=== PATIENT | male | born 1985 | race Caucasian/White ===

== ENCOUNTER 2023-10-14 13:30 | Emergency (ER) | payer BC, SELFPAY ==
[2023-10-14] VITALS (11 sets, daily range): BP systolic 136; BP diastolic 90; PULSE 63–96; RESP 20; O2SAT 92–100; BMI 19.7
--- NOTE | 2023-10-14 13:58 | ED.GENADULT ---
HPI - General Adult General Date Seen: 10/14/23 Chief complaint: Arrhythmia/Palpitations Stated complaint: Heart palp etc Time Seen by Provider: 10/14/23 13:32 Source: patient, RN notes reviewed and old records reviewed Mode of arrival: ambulatory Limitations: no limitations History of Present Illness HPI narrative: Patient is a 38-year-old who presents for evaluation of palpitations associated with some shortness of breath. He has a longstanding history of PVCs, in fact seen multiple cardiologists, with recommendation for ablation. He has to this point been hesitant to proceed with a procedure, he has been on propanolol for at least a couple of years. Most recently he has had some bradycardia and so the propanolol was switched 4 days ago to diltiazem. He has been waiting for the diltiazem to kick in but says he has been having more PVCs and today had what he identified as bigeminy which felt somewhat fast and scared him. He does not get lightheaded or pass out, did have some mild shortness of breath associated with feeling anxious today. Did not have chest pain. He does not smoke, denies other substances. No other medical history aside from PFO. Related Data Home Medications Medication Instructions Recorded Confirmed aspirin 325 mg tablet 325 mg PO Q4H 04/26/23 10/02/23 diltiazem HCl 120 mg 120 mg PO DAILY 10/14/23 10/14/23 capsule,extended release 24 hr Previous Rx's Medication Instructions Recorded propranolol 20 mg tablet 20 mg PO BID #60 tabs 10/14/23 Allergies Allergy/AdvReac Type Severity Reaction Status Date / Time No Known Allergies Allergy Unknown Unknown Verified 10/02/23 14:26 Review of Systems Status of ROS: Reports: 6 or more systems reviewed and unremarkable except as noted in History and below [facility] Medical History PVCs (premature ventricular contractions) ?I49.3 - Ventricular premature depolarization (ICD-10) History of cerebrovascular accident (02/21/17) ?Z86.73 - Personal history of transient ischemic attack (TIA), and cerebral infarction without residual deficits (ICD-10) Sinus infection ?J32.9 - Chronic sinusitis, unspecified (ICD-10) Surgical History History of loop recorder (02/26/18) ?Z98.890 - Other specified postprocedural states (ICD-10) Social History Smoking Status: Never smoker How often do you have a drink containing alcohol: never AUDIT-C Alcohol total score: 0 Non-prescribed substance use: denies use Little interest or pleasure in doing things: not at all Feeling down, depressed, or hopeless: not at all service: No Exam Narrative: Exam Narrative: Vital signs as noted above. In general, an alert, well-appearing patient. Head: Normocephalic, atraumatic. Eyes: Pupils are equal reactive. Extraocular movements are full. Conjunctivae are normal. ENT: Mucous membranes are moist. Throat is normal. Neck: Supple without lymphadenopathy. Heart: Regular rate and rhythm. No murmur or rub. Occasional ectopy. Lungs: Clear bilaterally. No increased work of breathing, crackles or wheezes. Abdomen: Soft and nontender. No organomegaly. Extremities: Well perfused. No edema. No calf tenderness. Pulses intact. Neurologic: Patient is alert and oriented to person and place. Speech is fluent. Face is symmetric. Moves all extremities equally. Affect: Normal. Skin: Warm and dry. Well perfused. Const: Vital Signs, click to edit/add: Vital Signs - 24 hr 10/14/23 13:37 10/14/23 13:41 10/14/23 13:44 Pulse Rate 90 82 Pulse Rate [Pulse Oximeter] 96 Respiratory Rate 20 Blood Pressure 136/90 H Blood Pressure [Ri ght Upper Arm] 136/90 H Pulse Oximetry 96 98 100 Oxygen Delivery Me thod Room Air 10/14/23 13:45 10/14/23 13:58 10/14/23 14:00 Pulse Rate 87 78 Pulse Rate [Pulse Oximeter] Respiratory Rate Blood Pressure Blood Pressure [Ri ght Upper Arm] Pulse Oximetry 92 95 98 Oxygen Delivery Me thod 10/14/23 14:15 10/14/23 14:30 10/14/23 14:45 Pulse Rate 71 72 63 Pulse Rate [Pulse Oximeter] Respiratory Rate Blood Pressure Blood Pressure [Ri ght Upper Arm] Pulse Oximetry 98 96 99 Oxygen Delivery Me thod 10/14/23 15:00 Pulse Rate 76 Pulse Rate [Pulse Oximeter] Respiratory Rate Blood Pressure Blood Pressure [Ri ght Upper Arm] Pulse Oximetry 100 Oxygen Delivery Ar yuanbrandon Documenting provider has reviewed patient's vital signs: yes Course Course ED Course: EKG here shows a single PVC, he has scattered PVCs on the monitor. No acute ST segment changes. A lot of artifact in the baseline. Had a long conversation with him. It sounds as if he is now thinking maybe he will go forward with an ablation after all. His heart rate is relatively high here in the 90s, his blood pressure is 136/90. I am going to try giving him a small dose of propanolol in addition to the diltiazem, I suspect that the propanolol has also been helping him manage a little bit of anxiety symptoms around all of this. Will check some basic lab work, CBC, metabolic panel, troponin, but I suspect patient's symptoms are baseline PVCs with somewhat worsening symptoms related to medication change. Rule out metabolic abnormality, ischemia, anemia etc.. Labs are unremarkable. After 40 mg of propanolol heart rate is in the 70s. Continued occasional PVCs. Had a lengthy conversation with him, would strongly encourage him to follow through with ablation. Overall think it is reasonable for him to go home. I am prescribing propanolol 20 mg tablets 1-2 daily depending on heart rate. Primary care follow-up if needed. Return for syncope, sustained regular tachycardia or other acute worsening. Vital Signs Vital signs: Initial Vital Signs Pulse Rate 96 10/14/23 13:37 Pulse Rhythm Regular 10/14/23 13:37 Respiratory Rate 20 10/14/23 13:37 Blood Pressure 136/90 H 10/14/23 13:37 Blood Pressure Mean 105 10/14/23 13:37 Blood Pressure Position Sitting 10/14/23 13:37 Pulse Oximetry 96 10/14/23 13:37 Oxygen Delivery Method Room Air 10/14/23 13:37 Vital Signs Pulse Rate 96 10/14/23 13:37 Respiratory Rate 20 10/14/23 13:37 Blood Pressure 136/90 H 10/14/23 13:37 Pulse Oximetry 96 10/14/23 13:37 Oxygen Delivery Method Room Air 10/14/23 13:37 Pulse Rate 76 10/14/23 15:00 Respiratory Rate 20 10/14/23 13:37 Blood Pressure 136/90 H 10/14/23 13:41 Pulse Oximetry 100 10/14/23 15:00 Oxygen Delivery Method Room Air 10/14/23 13:37 Medications Administered Medications: Discontinued Medications Generic Name Dose Route Start Last Admin Trade Name Woody PRN Reason Stop Dose Admin Propranolol HCl 40 mg 10/14/23 13:53 10/14/23 14:02 Propranolol 20 Mg Tablet PO 10/14/23 13:54 40 mg ONCE ONE Administration Medical Decision Making Lab Data Labs: Lab Results 10/14/23 10/14/23 Range/Units 13:52 14:08 WBC 7.20 (4.50-11.00) K/uL RBC 4.78 (4.30-5.90) m/uL Hgb 15.1 (13.5-17.5) gm/dL Hct 43.5 (37.0-53.0) % MCV 91 (80-100) fL MCH 32 (26-34) pg MCHC 35 (32-36) gm/dL RDW Coeff of Rika 12.6 (11.5-15.5) % Plt Count 176 (140-440) K/uL Neut % (Auto) 62.0 (42.0-72.0) % Lymph % (Auto) 25.6 (20-44) % [place] % (Auto) 6.8 (0.0-11.0) % Eos % (Auto) 4.9 (0.0-7.0) % Baso % (Auto) 0.4 (0.0-3.0) % Neut # (Auto) 4.47 (1.7-7.0) K/uL Lymph # (Auto) 1.84 (0.90-2.90) K/uL [place] # (Auto) 0.50 (0.00-0.90) K/UL Eos # (Auto) 0.35 (0.00-0.50) K/uL Baso # (Auto) 0.03 (0.00-0.30) K/uL Abs Immat Gran (auto) 0.02 (0.00-0.30) K/uL Imm/Tot Granulo (auto) 0.3 % Sodium 139 (135-149) mmol/L Potassium 3.8 (3.6-5.1) mmol/L Chloride 104 (96-114) mmol/L Carbon Dioxide 24 (20-32) mmol/L Anion Gap 11 (7-15) mEq/L BUN 10 (5-24) mg/dL Creatinine 0.7 (0.5-1.5) mg/dL Estimated Creat Clear 130.50 Estimated GFR 119 ml/min Glucose 109 (60-115) mg/dL Calcium 9.4 (8.4-10.6) mg/dL POC Troponin I 0.00 L (0.01-0.04) ng/ml Discharge Plan Discharge Clinical Impression: PVCs (premature ventricular contractions) Patient Disposition: Home, Self-Care Condition: Stable Instructions: Premature Ventricular Contractions (ED) Additional Instructions: Continue the diltiazem. I am prescribing propanolol 20 mg tablets, you can take 1-2 tablets daily depending on how your pulse does. I would strongly recommend that you follow-up for ablation as previously discussed. Return at any time for new symptoms such as fainting, sustained regular tachycardia, or other new symptoms. Prescriptions: New propranolol 20 mg tablet 20 mg PO BID Qty: 60 2RF No Action aspirin 325 mg tablet 325 mg PO Q4H Rx Instructions: while awake diltiazem HCl 120 mg capsule,extended release 24hr 120 mg PO DAILY Follow Up/Referrals: Julio Cesar Mcguire MD [Primary Care Provider] - Stand Alone Forms: [facility] Navigation Info Instructions
[2023-10-14] MEDS: PROPRANOLOL 20 MG TABLET 40 MG PO (14:02)
--- OUTSIDE RECORDS SUMMARY | 2023-10-14 14:12 | XMS_ITS | Continuity of Care Document ---
Author Name Unknown Organization [facility] Address [address] [address] [place] [address] Phone Care Team Providers Care Chassis Mechanic Name Role Phone Unavailable Unavailable Unavailable Allergies, Adverse Reactions, Alerts Substance Reaction Status Criticality No Known Allergies Active No Inform ation Medications Medication Instructions Dosage Effective Dates (start - stop) Status Comments aspirin 325 mg tablet take 1 tablet by o ral route every day 325 MG - Active omeprazole 20 mg tablet,delayed release take 1 by Oral route every day 1 - Active propranolol ER 160 mg capsule,24 hr,extended release take 1 capsule by oral route every day 160 MG - Active Procedures Procedure Date Ugi Endo; W/bx 1/mx Level Iv-surg Path Gross/micro 22 Immunocytochemistry, Each Antibody Office Cons New/estab Mod Routine Serum Collection Advance Directives Directive Yes / No Effective Date File Name No Information Encounters Encounter Description Practice Location Reason(s) For Visit Diagnoses Date Provider Providers Copied on Encounter [facility], [address] [address], [place], [id number], tel:[phone] [facility] No Information No Information Referring Provider: Selvin Ahmadi MD, [address], [place], [address] . tel:[phone] [facility], [address] [address], [place], [place], [id number], [place] tel:[phone] [place] [facility] Epigastric painEpigastric pain 2 Galdino Montalvo. [address] [place] [address], [id number], [place]. tel:[phone] Referring Provider: Julio Cesar Corado, [address] [place] [address], [id number]. tel:[phone] Office Cons New/estab Mod [facility], [address] [address], [place], [place], [id number], [place] tel:[phone] [facility] GI Symptoms or Concerns (chief complaint) Dyspepsia 2 Matthew Anderson. [address] [place] [address], [id number], [place]. tel:[phone] Referring Provider: Julio Cesar Corado, [address] [place] [address], [address]. tel:[phone] [facility], [address] [address], [place], [place], [id number], [place] tel:[phone] [facility] No Information 2 Linwood Orta. [address] [place] [address], [id number], [place]. tel:[phone] Family History Family Member Type Diagnosis Age At Onset No Information Immunizations Vaccine Date Status Comments SARS-COV-2 (COVID-19) vaccin e, mRNA, spike protein, LNP, preservative free, 30 mcg/0.3mL dose administered Note: [facility] bi-direct ional interface ; Source: Other Registry SARS-COV-2 (COVID-19) vaccin e, mRNA, spike protein, LNP, preservative free, 100 mcg/0.5mL dose or 50 mcg/0.25mL dose administered Note: [facility] bi -directional interface ; Source: Other Registry SARS-COV-2 (COVID-19) vaccin e, mRNA, spike protein, LNP, preservative free, 100 mcg/0.5mL dose or 50 mcg/0.25mL dose administered Note: [facility] bi -directional interface ; Source: Other Registry Afluria Qd administered Note: [facility] bi-directional interface ; Source: Other Registry Afluria Qd administered Note: [facility] bi-directional interface ; Source: Other Registry tetanus toxoid, reduced diphtheria toxoid, and acellular pertussis vaccine, adsorbed administered Note: [facility] b i-directional interface ; Source: Other Registry tetanus toxoid, reduced diphtheria toxoid, and acellular pertussis vaccine, adsorbed administered Note: [facility] b i-directional interface ; Source: Other Registry Payers Payer name Insurance type Covered constitution party ID Authoriza reggie(s) [employer] [facility] [id number] Social History Type Description Quantity Date Captured Comments Sex Male Smoking Status No Information Chief Complaint And Reason For Visit No Information Reason For Referral Reason For Referral No Information History Of Present Illness Encounter Date Complaint History Of Prese nt Illness GI Symptoms or Concerns Mr. Yusuf sullivan is a 36-year-old gentleman with a history of anxiety, cerebrovascular accident (2017, related to PFO), irregular heart rate (reported PVCs and PACs) and anxiety, who is seen in consultation at the request of Dr. Julio Cesar Mcguire for symptoms of early satiety and belching.Mr. Funez describes approximately 6 months of abdominal symptoms consisting of early satiety and frequent belching. Initially, there was some mild constipation as well, but this has seemingly resolved. His symptoms seem to be somewhat worse later in the day. He denies any nausea or vomiting. He does not have typical reflux symptoms.Coincidentally, around the same time, he was noticing symptoms of an irregular heart rate. He underwent cardiac evaluation including Holter monitoring and was found to have frequent PVCs and PACs. He was placed on Inderal for this. He notes that he has had significant anxiety regarding this medical condition and wonders whether this may be contributing to some Functional Status Date Functional Assessmen t No Information Instructions Date Instruction Additional Infor lashell 1.) Symptoms suggest bob of dyspepsia as we discussed.2.) I would suggest trying the higher dose of omeprazole (40mg daily)3.) Blood testing today to screen for Celiac Sprue4.) Upper endoscopy will be arranged to screen for various other causes of dyspepsia5.) If GI tract evaluation remains unrevealing I would consider talking to your main doctor about possible trial of anxiety therapy Related to Dyspepsia Dyspepsia Related to Dyspe psia Non-ulcer dyspepsia (Functional dyspepsia) Related to Dyspepsia Assessments Type Assessment Date No Information Patient Care Teams Name Effective Dates (start - stop) Status Members No Information
[2023-10-14 14:15] LABS: Basophils Absolute Auto 0.03 K/uL (0.00-0.30); Basophils Percent Auto 0.4 % (0.0-3.0); Eosinophils Absolute Auto 0.35 K/uL (0.00-0.50); Eosinophils Percent Auto 4.9 % (0.0-7.0); Hematocrit 43.5 % (37.0-53.0); Hemoglobin* 15.1 gm/dL (13.5-17.5); Immature Granulocytes Abs Auto 0.02 K/uL (0.00-0.30); Immature Granulocytes Pct Auto 0.3 %; Lymphocytes Absolute Auto 1.84 K/uL (0.90-2.90); Lymphocytes Percent Auto 25.6 % (20-44); Mean Corpuscular HGB Conc 35 gm/dL (32-36); Mean Corpuscular Hemoglobin 32 pg (26-34); Mean Corpuscular Volume 91 fL (80-100); Monocytes Percent Auto 6.8 % (0.0-11.0); Neutrophils Absolute Auto 4.47 K/uL (1.7-7.0); Platelet Count* 176 K/uL (140-440); RDW Coefficient of Variation % 12.6 % (11.5-15.5); Red Blood Count 4.78 m/uL (4.30-5.90)
[2023-10-14 14:29] LABS: Slide Review Reflex No
[2023-10-14 14:31] LABS: Chloride* 104 mmol/L (96-114); Sodium* 139 mmol/L (135-149)
[2023-10-14 14:32] LABS: Potassium* 3.8 mmol/L (3.6-5.1)
[2023-10-14 14:34] LABS: Anion Gap 11 mEq/L (7-15); Carbon Dioxide* 24 mmol/L (20-32); Creatinine* 0.7 mg/dL (0.5-1.5); Estimated Glomerular Filt Rate 119 ml/min
[2023-10-14 14:35] LABS: Blood Urea Nitrogen* 10 mg/dL (5-24); Calcium* 9.4 mg/dL (8.4-10.6); Glucose* 109 mg/dL (60-115)
== END 2023-10-14 15:19 | disposition home or self-care (01) ==
PROVIDERS: Emergency Provider Emergency Medicine; PCP Internal Medicine
DX: I49.3 Ventricular premature depolarization (principal)
CPT/HCPCS: 36415; 80048; 84484; 85025; 93005; 94761; 99284; A9270

== ENCOUNTER 2024-01-04 22:01 | Outpatient (CLI) | payer BC, SELFPAY | END 2024-01-04 22:02 | disposition home or self-care (01) | LOC: AMB 01-13 20:54 | PROVIDERS: PCP Internal Medicine; Visit Provider Family Medicine | DX: I49.9 Cardiac arrhythmia, unspecified (principal) | CPT/HCPCS: A0998 ==

== ENCOUNTER 2024-02-04 20:40 | Emergency (ER) | payer BC, SELFPAY ==
[2024-02-04] VITALS (17 sets, daily range): BP systolic 112–151; BP diastolic 72–89; PULSE 80–114; RESP 18; TEMP 36.5; O2SAT 96–100; BMI 20.2
--- NOTE | 2024-02-04 20:58 | ED.GENADULT ---
HPI - General Adult General Time Seen by Provider: 20:58 Date Seen: 02/04/24 Chief complaint: Shortness of Breath/Dyspnea Stated complaint: Heart palpitations Time Seen by Provider: 02/04/24 20:58 Source: patient and RN notes reviewed Mode of arrival: ambulatory Limitations: no limitations History of Present Illness HPI narrative: This 38-year-old gentleman is coming in with concern of arrhythmia documented on his Apple watch. At about 745, patient started to note palpitations or irregular heartbeat, felt short of breath with it. He checked his apple watch and did an EKG, it told him that he was in atrial fibrillation with PVCs and PACs. His symptoms did not settle down any proceeded to come to the ER. He had an ablation for PVCs done at [facility] about 1 and half months ago. He does not drink any alcohol, has not been using any caffeine, he states he avoids all the things that can increase PVCs. He has never had a diagnosis of atrial fibrillation before. No chest discomfort. Related Data Home Medications Medication Instructions Recorded Confirmed aspirin 325 mg tablet 325 mg PO Q4H 04/26/23 12/25/23 Previous Rx's Medication Instructions Recorded lorazepam 0.5 mg tablet 0.5 mg PO QDAY PRN anxiety #10 tabs 12/25/23 Allergies Allergy/AdvReac Type Severity Reaction Status Date / Time No Known Allergies Allergy Unknown Unknown Verified 12/25/23 14:40 Review of Systems Status of ROS: Reports: 6 or more systems reviewed and unremarkable except as noted in History and below [facility] Medical History Synovial cyst ?M71.30 - Other bursal cyst, unspecified site (ICD-10) PVCs (premature ventricular contractions) ?I49.3 - Ventricular premature depolarization (ICD-10) History of cerebrovascular accident (02/21/17) ?Z86.73 - Personal history of transient ischemic attack (TIA), and cerebral infarction without residual deficits (ICD-10) Sinus infection ?J32.9 - Chronic sinusitis, unspecified (ICD-10) Surgical History History of loop recorder (02/26/18) ?Z98.890 - Other specified postprocedural states (ICD-10) Social History Smoking Status: Never smoker How often do you have a drink containing alcohol: never AUDIT-C Alcohol total score: 0 Non-prescribed substance use: denies use Little interest or pleasure in doing things: not at all Feeling down, depressed, or hopeless: not at all service: No Exam Const: Vital Signs, click to edit/add: Vital Signs - 24 hr 02/04/24 20:45 02/04/24 20:57 02/04/24 21:00 Temperature 97.7 F Pulse Rate 103 H 103 H Pulse Rate [Left P ulse Oximeter] 80 Respiratory Rate 18 Blood Pressure Blood Pressure [Ri ght Upper Arm] 151/76 H Pulse Oximetry 100 98 98 Oxygen Delivery Me thod Room Air 02/04/24 21:05 02/04/24 21:06 02/04/24 21:18 Temperature Pulse Rate 107 H 110 H Pulse Rate [Left P ulse Oximeter] Respiratory Rate Blood Pressure 128/89 Blood Pressure [Ri ght Upper Arm] Pulse Oximetry 96 100 98 Oxygen Delivery Me thod 02/04/24 21:20 02/04/24 21:22 Temperature Pulse Rate 110 H 106 H Pulse Rate [Left P ulse Oximeter] Respiratory Rate Blood Pressure 133/83 Blood Pressure [Ri ght Upper Arm] Pulse Oximetry 100 100 Oxygen Delivery Me thod This 38-year-old gentleman is alert, interactive, no apparent distress but mildly anxious. Sclera clear, pupils equal round reactive. Symmetrical facial function, able to speak in complete sentences. Lungs are clear, good air entry, no wheezing or crackles. Heart is somewhat irregular but watching the corresponding nuclear monitoring technician it looks like PACs or a premature beat that is happening. Abdomen is soft, no rebound or guarding, no organomegaly. He is ambulatory into the ED of his own accord. Skin visualized without rash. No lower extremity edema. Documenting provider has reviewed patient's vital signs: yes Course Course ED Course: The EKG obtained on arrival from nursing staff looks to have some irregularity in it but I certainly see complexes with P waves, also wonder if there is deferring P-wave morphology. I do see a PVC. Will have him on cardiac monitoring and pulse oximetry. Will have staff attempt to get another EKG. Reviewed with patient that I will be sending these EKGs onto [facility], will talk to Cardiology. Will also get appropriate blood work, obtain portable chest x-ray. I see no evidence of atrial fibrillation on his monitor right now. With what I am seen on his EKG, do wonder if perhaps the Apple watch is not reading his rhythm correctly, this is always a possibility. Will continue to watch him on the monitor here and work through the labs, contact [facility]. Reevaluation(s) Time of Reevaluation #1: 22:27 Reevaluation #1: Did review with patient my conversation with Cardiology. He certainly can consider taking propranolol when he gets home, talking to Cardiology tomorrow. We reviewed his labs, his potassium is just mildly low at 3.1. Will give him effervescent potassium prior to discharge, this may help settle PVCs. He really does not have a reason to have chronic on going hypokalemia, would favor having his potassium rechecked rather than placing him on any chronic potassium at this time. Plan will be to discharge to home for further outpatient Cardiology follow-up. Consultations Consultation #1: Spoke to [facility] triage regarding patient. She will get the EKG's that we are faxing and review with cardiology. 10:18 p.m.: Spoke with Kalie on-call for Cardiology. She had seen the EKGs, agrees that he has multifocal PACs but she does not see any atrial fibrillation either. She did state that this should have nothing to do with his ablation, should not have been anywhere near the atrium for his PVCs. He does have a follow-up with heart rhythm clinic in about a month's time. She states he got taken off his propranolol after the ablation, wonders if starting this back up may help with some of this multifocal PACs seen. Time: 21:54 Vital Signs Vital signs: Initial Vital Signs Temperature 97.7 F 02/04/24 20:45 Temperature Source Temporal Artery Scan 02/04/24 20:45 Pulse Rate 80 02/04/24 20:45 Respiratory Rate 18 02/04/24 20:45 Blood Pressure 151/76 H 02/04/24 20:45 Blood Pressure Mean 101 02/04/24 20:45 Blood Pressure Position Sitting 02/04/24 20:45 Pulse Oximetry 100 02/04/24 20:45 Oxygen Delivery Method Room Air 02/04/24 20:45 Vital Signs Temperature 97.7 F 02/04/24 20:45 Pulse Rate 80 02/04/24 20:45 Respiratory Rate 18 02/04/24 20:45 Blood Pressure 151/76 H 02/04/24 20:45 Pulse Oximetry 100 02/04/24 20:45 Oxygen Delivery Method Room Air 02/04/24 20:45 Temperature 97.7 F 02/04/24 20:45 Pulse Rate 106 H 02/04/24 21:22 Respiratory Rate 18 02/04/24 20:45 Blood Pressure 133/83 02/04/24 21:22 Pulse Oximetry 100 02/04/24 21:22 Oxygen Delivery Method Room Air 02/04/24 20:45 Medical Decision Making Lab Data Lab results reviewed: Yes I reviewed the patient's lab results Labs: Lab Results 02/04/24 02/04/24 Range/Units 21:07 21:15 WBC 10.88 (4.50-11.00) K/uL RBC 4.91 (4.30-5.90) m/uL Hgb 15.4 (13.5-17.5) gm/dL Hct 43.5 (37.0-53.0) % MCV 89 (80-100) fL MCH 31 (26-34) pg MCHC 35 (32-36) gm/dL RDW Coeff of Rika 12.0 (11.5-15.5) % Plt Count 196 (140-440) K/uL Neut % (Auto) 69.1 (42.0-72.0) % Lymph % (Auto) 17.2 L (20-44) % [place] % (Auto) 9.7 (0.0-11.0) % Eos % (Auto) 3.1 (0.0-7.0) % Baso % (Auto) 0.3 (0.0-3.0) % Neut # (Auto) 7.51 H (1.7-7.0) K/uL Lymph # (Auto) 1.90 (0.90-2.90) K/uL [place] # (Auto) 1.10 H (0.00-0.90) K/UL Eos # (Auto) 0.34 (0.00-0.50) K/uL Baso # (Auto) 0.03 (0.00-0.30) K/uL Abs Immat Gran (auto) 0.07 (0.00-0.30) K/uL Imm/Tot Granulo (auto) 0.6 % D-Dimer Quant (PE/DVT) < 0.27 (0.00-0.50) ug/ml Sodium 140 (135-149) mmol/L Potassium 3.1 L (3.6-5.1) mmol/L Chloride 102 (96-114) mmol/L Carbon Dioxide 22 (20-32) mmol/L Anion Gap 16 H (7-15) mEq/L BUN 12 (5-24) mg/dL Creatinine 0.7 (0.5-1.5) mg/dL Estimated Creat Clear 130.50 Estimated GFR 119 ml/min Glucose 103 (60-115) mg/dL Calcium 10.1 (8.4-10.6) mg/dL Magnesium 2.0 (1.5-2.6) mg/dL NT-Pro-B Natriuret Pep 79 pg/mL Lab Acknowledgement Test Added POC Troponin I 0.00 L (0.01-0.04) ng/ml Imaging Data Chest x-ray: Attestation: I have reviewed the pertinent imaging results. My impression: I do not appreciate any congestive heart failure, no consolidation. Await Radiology over-read Radiologist's impression: Patient: FLEX URBAN Facility:?[facility] Patient ID:?[id number] Site Patient ID:?[id number]. Site :?[id number] Study:?XRay Chest AP PORTABLE-02/04/2024 9:49:12 PM Ordering Physician:Damaso Moncada Final Report: INDICATION: Palpitations. TECHNIQUE: Chest 1 views. COMPARISON: November 2021. FINDINGS: Lungs: Normal lung volume. No consolidation. The tracheobronchial tree and hilar structures are unremarkable. Pleura: No pleural effusion or pneumothorax. Heart and Mediastinum: Normal heart size. The great vessels of the thorax are unremarkable. Subcutaneous cardiac monitoring device. Bones: No acute displaced osseous process. IMPRESSION: No consolidation. Dictated by German Esqueda MD @ 02/04/2024 10:14:57 PM (Electronic Signature) ECG Data Attestation: I personally reviewed and interpreted this ECG as follows: (Sinus tachycardia at 116 beats per minute, PVC seen, possible premature atrial contractions. The P-wave morphology looks to be different in some of these complexes. Nonspecific ST segment changes.) Prior ECG tracings: available for review (Compared to EKG from 10/14/2023) Interpretation: EKG 2. Timed 21:09 shows a sinus rhythm with premature atrial complexes, 93 beats per minute. EKG is read with short MO interval on this 1. Does appear to have differing P-wave morphology within this EKG as well as compared to his earlier EKG. Critical Care Time Critical Care Time Critical Care Time: No Discharge Plan Discharge Clinical Impression: APC (atrial premature contractions), Hypokalemia Patient Disposition: Home, Self-Care Condition: Stable Instructions: Potassium Content of Foods List (ED), Hypokalemia (ED), Premature Atrial Contractions (ED) Additional Instructions: Contact your physician in the heart rhythm clinic tomorrow. Have them review the EKGs that I sent to [facility], see if they think you should perhaps go back on propranolol if this continues or provide you with other recommendations. If you develop chest pain, increased difficulty breathing/worsening shortness of breath, do recommend re-evaluation in the interim. You also should have your potassium rechecked within a week, was mildly low here at 3.1. Activity Level: Activity as Tolerated Prescriptions: No Action aspirin 325 mg tablet 325 mg PO Q4H Rx Instructions: while awake lorazepam 0.5 mg tablet 0.5 mg PO QDAY PRN (Reason: anxiety) Qty: 10 0RF Follow Up/Referrals: Julio Cesar Mcguire MD [Primary Care Provider] - Stand Alone Forms: [employer] Info Instructions
--- NOTE | 2024-02-04 21:06 | XR_ITS ---
Patient: FLEX URBAN Facility:?[facility] Patient ID:?[id number] Site Patient ID:?[id number]. Site :?[id number] Study:?XRay-Chest AP PORTABLE-02/04/2024 9:49:12 PM Ordering Physician:Damaso Moncada Final Report: INDICATION: Palpitations. TECHNIQUE: Chest 1 views. COMPARISON: November 2021. FINDINGS: Lungs: Normal lung volume. No consolidation. The tracheobronchial tree and hilar structures are unremarkable. Pleura: No pleural effusion or pneumothorax. Heart and Mediastinum: Normal heart size. The great vessels of the thorax are unremarkable. Subcutaneous cardiac monitoring device. Bones: No acute displaced osseous process. IMPRESSION: No consolidation. Dictated by German Esqueda MD @ 02/04/2024 10:14:57 PM Signed by:?German Esqueda MD @02/04/2024 10:14:57 PM (Electronic Signature)
[2024-02-04 21:36] LABS: Basophils Absolute Auto 0.03 K/uL (0.00-0.30); Basophils Percent Auto 0.3 % (0.0-3.0); Eosinophils Absolute Auto 0.34 K/uL (0.00-0.50); Eosinophils Percent Auto 3.1 % (0.0-7.0); Hematocrit 43.5 % (37.0-53.0); Hemoglobin* 15.4 gm/dL (13.5-17.5); Immature Granulocytes Abs Auto 0.07 K/uL (0.00-0.30); Immature Granulocytes Pct Auto 0.6 %; Lymphocytes Percent Auto 17.2 % (20-44); Mean Corpuscular HGB Conc 35 gm/dL (32-36); Mean Corpuscular Hemoglobin 31 pg (26-34); Mean Corpuscular Volume 89 fL (80-100); Monocytes Percent Auto 9.7 % (0.0-11.0); Neutrophils Absolute Auto 7.51 K/uL (1.7-7.0); Neutrophils Percent Auto 69.1 % (42.0-72.0); Platelet Count* 196 K/uL (140-440); Red Blood Count 4.91 m/uL (4.30-5.90); White Blood Count* 10.88 K/uL (4.50-11.00)
[2024-02-04 21:38] LABS: Slide Review Reflex No
[2024-02-04 21:44] LABS: Chloride* 102 mmol/L (96-114)
[2024-02-04 21:45] LABS: Potassium* 3.1 mmol/L (3.6-5.1); Sodium* 140 mmol/L (135-149)
[2024-02-04 21:47] LABS: Anion Gap 16 mEq/L (7-15); Carbon Dioxide* 22 mmol/L (20-32); Creatinine* 0.7 mg/dL (0.5-1.5); Estimated Glomerular Filt Rate 119 ml/min
[2024-02-04 21:48] LABS: Blood Urea Nitrogen* 12 mg/dL (5-24); Calcium* 10.1 mg/dL (8.4-10.6); Glucose* 103 mg/dL (60-115)
[2024-02-04 21:55] LABS: D Dimer Quantitative* < 0.27 ug/ml (0.00-0.50)
[2024-02-04 21:58] LABS: NT Pro B Type NatriureticPept* 79 pg/mL
[2024-02-04] MEDS: POTASSIUM BICARB 25 MEQ EFFERVESCENT TAB PO (22:41)
== END 2024-02-04 22:52 | disposition home or self-care (01) ==
PROVIDERS: Emergency Provider Family Medicine; PCP Internal Medicine
DX: I49.1 Atrial premature depolarization (principal); E87.6 Hypokalemia
CPT/HCPCS: 36415; 71045; 80048; 83735; 83880; 84484; 85025; 85379; 93005; 94761; 99284; 99285; A9270